=== PATIENT | male | born 1970 | race African-American/Black ===

== ENCOUNTER 2016-10-08 23:44 | Emergency (ER) | payer OTHER ==
[2016-10-09] MEDS ORDERED: Sodium Chloride 0.9% 100 ML ONE (00:09)
[2016-10-09] MEDS ORDERED: cefTRIAXone\\ROCEPHIN 2 GM VIAL ONE (00:09)
[2016-10-09] MEDS ORDERED: Clindamycin 150 MG CAP ONE (00:09)
== END 2016-10-09 00:49 | disposition home or self-care (01) ==
LOC: NAV ERS 23:44
DX: L03.211 Cellulitis of face (principal); J32.0 Chronic maxillary sinusitis; I10 Essential (primary) hypertension; F17.210 Nicotine dependence, cigarettes, uncomplicated; Z79.899 Other long term (current) drug therapy
CPT/HCPCS: 96365; J0696; J7050

== ENCOUNTER 2018-08-27 18:18 | Emergency (ER) | payer OTHER ==
[2018-08-27] MEDS ORDERED: Clindamycin 150 MG CAP ONE (18:51)
[2018-08-27] MEDS ORDERED: Acetaminophen 500 MG TAB ONE (18:52)
[2018-08-27] MEDS ORDERED: Cephalexin 250 MG CAP ONE (18:52)
== END 2018-08-27 19:05 | disposition home or self-care (01) ==
LOC: NAV ERS 18:18
DX: L02.01 Cutaneous abscess of face (principal); I10 Essential (primary) hypertension; F17.210 Nicotine dependence, cigarettes, uncomplicated; Z79.899 Other long term (current) drug therapy
CPT/HCPCS: 99282